=== PATIENT | female | born 1975 | race Caucasian/White ===

== ENCOUNTER 2022-03-16 04:15 | Emergency (ER) | payer OTHER ==
[~2022-03-16] VITALS: Ht 157.5 cm; Wt 81.6 kg
[2022-03-16 04:34] LABS: *BILIRUBIN,URIN NEGATIVE (NEGATIVE); *CLARITY,URINE CLEAR (CLEAR); *COLOR,URINE YELLOW (YELLOW); *KETONES,URINE TRACE (NEGATIVE); *UROBILINOGEN,URINE 0.2 E.U./dl (NORMAL); LEUKOCYTE ESTERASE ,URINE NEGATIVE (NEGATIVE); NITRITE, URINE NEGATIVE (NEGATIVE); PH,URINE 5.5 (5.0-8.0); UGLUCOSE NEGATIVE (NEGATIVE)
--- NOTE | 2022-03-16 04:34 | NUR ---
pt in room 5a pt bib ra 100 [address] in her car. pt states she feels shocks upon her body. lab remi her blood and ekg done. pt unable to state when asked what the voices are telling her as she states she is hearing voices when asked she has a long pause and is unsure.
--- NOTE | 2022-03-16 04:36 | NUR ---
lapd unit 10a17 last names benavides and bernardino here to see the pt.
[2022-03-16 04:41] LABS: *BLOOD, URINE TRACE (NEGATIVE)
[2022-03-16 04:42] LABS: *URINE HCG, QUAL NEGATIVE (NEGATIVE)
[2022-03-16 04:46] LABS: MEAN CORPUSCULAR HEMOGLOBIN 27.8 uug (24.7-32.8); MEAN CORPUSCULAR VOLUME 82.4 fL (75.5-95.3); PLATELET COUNT (AUTO) 568 K/uL (179-408)
--- NOTE | 2022-03-16 04:58 | NUR ---
Dr. Jara at bedside for MSE.
[2022-03-16 05:12] LABS: ETHANOL < 3 MG/DL (0-0)
[2022-03-16 05:16] LABS: BACTERIA,URINE NONE SEEN /HPF (NONE SEEN); RBC,URINE 0-3 /HPF (0-3); SQUAMOUS EPITHELIAL CELL,UR FEW /HPF (NONE SEEN); WBC,URINE 0-3 /HPF (0-3)
[2022-03-16 05:28] LABS: *AMPHETAMINE, URINE POSITIVE (NEGATIVE); *CANNABINOID, URINE NEGATIVE (NEGATIVE); *COCCAINE, URINE NEGATIVE (NEGATIVE); *OPIATE, URINE NEGATIVE (NEGATIVE); *PHENCYCLIDINE SCREEN,URINE NEGATIVE (NEGATIVE)
[2022-03-16 05:32] LABS: ALANINE AMINOTRANSFERASE 16 U/L (14-59); ALKALINE PHOSPHATASE 82 U/L (50-136); ASPARTATE AMINOTRANSFERASE 9 U/L (15-37); BILIRUBIN,DIRECT 0.1 mg/dL (0.0-0.2); BILIRUBIN,TOTAL 0.4 mg/dL (0.2-1.0); CARBON DIOXIDE 28 mmol/L (21-32); CHLORIDE 104 mmol/L (98-107); CREATININE 0.8 mg/dL (0.6-1.3); GLUCOSE 91 mg/dL (74-106); POTASSIUM 3.9 mmol/L (3.5-5.1); UREA NITROGEN, BLOOD 10 mg/dL (7-18)
[2022-03-16 05:35] LABS: ACETAMINOPHEN < 2.0 ug/mL (10-30)
[2022-03-16 06:33] LABS: MAGNESIUM 1.8 mg/dL (1.8-2.4)
--- NOTE | 2022-03-16 09:35 | NUR ---
Pt medically cleared by dr Cagle. Place a call to Chivo FITCHW from [facility].
--- NOTE | 2022-03-16 10:36 | NUR ---
Igor social sciences research scientist Rose at the bedside speaking to Pt.
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
[2022-03-16] MEDS ORDERED: LORAZEPAM 1 MG TABLET ONE ×2 (11:39→22:22)
--- NOTE | 2022-03-16 11:44 | NUR ---
Per protective services social worker, Rose pt agreed to go to [facility] voluntarily. Placed a call to [facility] and pt's info faxed to them. Awaiting acceptance/call back from them.
[2022-03-16] MEDS ORDERED: LORAZEPAM 0.5 MG TABLET PO ONE ×2 (11:45→21:30)
--- NOTE | 2022-03-16 13:03 | NUR ---
Lunch tray provided, Pt ate w/ great appetite. States feeling better and no longer anxious.
[2022-03-16] MEDS ORDERED: NICOTINE 14 MG/24HR PATCH TD SCH (19:00)
--- NOTE | 2022-03-16 20:01 | NUR ---
call to Paul at [facility] [phone] state he will call me back on status and I will fax the covid results.
--- NOTE | 2022-03-16 20:57 | NUR ---
[facility] is speaking with Dr. Goldman that pt is medically clear for psych admission.
--- NOTE | 2022-03-16 21:11 | NUR ---
spoke with timmy at [facility] and faxed additional documents awaiting more information.
--- NOTE | 2022-03-16 22:12 | NUR ---
spoke with [facility] and pt is accepted and will go to room 209 b I will call timmy to arrange for transport.
--- NOTE | 2022-03-16 22:28 | NUR ---
spoke with timmy at [facility] he says that they will arrange for transport of the pt and will call me with an eta.
--- NOTE | 2022-03-16 23:29 | NUR ---
left a message to determine time of transport to [facility] it has been one hour since last contact.
--- NOTE | 2022-03-17 00:07 | NUR ---
call to art at [facility] still waiting on eta of lease picker of the pt.
--- NOTE | 2022-03-17 00:10 | NUR ---
art from [facility] called back will tack picker at [id number].
--- NOTE | 2022-03-17 02:04 | NUR ---
[employer] Interaction Designer from [facility] here patricia to take the pt for voluntary admission to [facility] facility for admission.
== END 2022-03-17 02:08 ==
LOC: ER 04:18
DX: F29 Unspecified psychosis not due to a substance or known physiological condition (principal); F17.210 Nicotine dependence, cigarettes, uncomplicated; Z59.02 Unsheltered homelessness; R94.31 Abnormal electrocardiogram [ECG] [EKG]; Z20.822 Contact with and (suspected) exposure to COVID-19; R03.0 Elevated blood-pressure reading, without diagnosis of hypertension
CPT/HCPCS: 36415; 83735; 84484; 84703; 85025; 93005; A4663; G0480